=== PATIENT | female | born 1995 | race Caucasian/White ===

== ENCOUNTER 2023-03-01 21:38 | Observation (INO) | payer MEDICAID ==
[~2023-03-01] VITALS: Ht 152.4 cm; Wt 78.0 kg
== END 2023-03-01 23:12 | disposition home or self-care (01) ==
LOC: LDRP 21:38
PROVIDERS: ADMIT Obstetrics & Gynecology; ATTEND Obstetrics & Gynecology
DX: O36.8120 Decreased fetal movements, second trimester, not applicable or unspecified (principal); Z3A.24 24 weeks gestation of pregnancy
CPT/HCPCS: 59025; 76815; 81002; 94760; G0378

== ENCOUNTER 2023-04-30 11:13 | Observation (INO) | payer MEDICAID | END 2023-04-30 13:09 | disposition home or self-care (01) | LOC: LDRP 11:13 | PROVIDERS: ADMIT Obstetrics & Gynecology; ATTEND Obstetrics & Gynecology | DX: O24.419 Gestational diabetes mellitus in pregnancy, unspecified control (principal); Z3A.32 32 weeks gestation of pregnancy | CPT/HCPCS: 59025; 76818; 81002; 82948; 94760; G0378 ==

== ENCOUNTER 2023-05-05 08:11 | Observation (INO) | payer MEDICAID ==
[2023-05-07] MEDS ORDERED: CEPH250C PO (08:48)
[2023-05-07] MEDS ORDERED: PREN-96 PO (08:48)
[2023-05-07 09:06] LABS: Urine Bacteria NONE SEEN /hpf (None Seen); Urine Blood Negative /uL (Negative); Urine Budding Yeast FEW /hpf (None Seen); Urine Clarity CLOUDY (Clear); Urine Color Yellow (Yellow); Urine Mucus FEW (None Seen); Urine Protein, UAD 1+ (Negative); Urine Urobilinogen Normal (Negative); Urine WBC 91 /hpf (0 - 5); Urine WBC Clumps PRESENT /hpf (None Seen); Urine pH 6.5 (5.0-8.0)
== END 2023-05-07 09:23 | disposition home or self-care (01) ==
LOC: LDRP 05-07 08:07 → UNDOADMOB 05-07 08:07 → LDRP 05-07 08:10 → UNDODISOB 05-07 09:23
PROVIDERS: ADMIT Obstetrics & Gynecology; ATTEND Obstetrics & Gynecology
DX: O24.419 Gestational diabetes mellitus in pregnancy, unspecified control (principal); O23.43 Unspecified infection of urinary tract in pregnancy, third trimester; Z3A.33 33 weeks gestation of pregnancy
CPT/HCPCS: 59025; 76818; 81001; 81002; 82948; 94760; G0378

== ENCOUNTER 2023-06-03 12:53 | Observation (INO) | payer MEDICAID | END 2023-06-03 14:38 | disposition home or self-care (01) | LOC: LDRP 12:53 → UNDOADMOB 12:53 → LDRP 13:24 | PROVIDERS: ADMIT Obstetrics & Gynecology; ATTEND Obstetrics & Gynecology | DX: O24.419 Gestational diabetes mellitus in pregnancy, unspecified control (principal); Z3A.37 37 weeks gestation of pregnancy | CPT/HCPCS: 59025; 76818; 81002; 82948; 82962; 94760; G0378 ==

== ENCOUNTER → 2023-06-03 | Outpatient (CLI) | payer MEDICAID ==
[~2023-06-03] MED LIST: CEPH250C PO; PREN-96 PO
[2023-06-03 12:01] LABS: Basophils # (auto) 0 10 ^3/uL (0-0.2); Basophils % (auto) 0.5 % (0.0-2.0); Eosinophils # (auto) 0.2 10 ^3/uL (0-0.8); Eosinophils % (auto) 2.2 % (0.0-7.0); Hematocrit 33.6 % (36.0-46.0); Hemoglobin 11.4 g/dL (12.2-16.2); Lymphocytes # (auto) 1.6 10 ^3/uL (0.4-5.4); Lymphocytes % (auto) 18.3 % (10.0-50.0); Monocytes # (auto) 0.6 10 ^3/uL (0-1.3); Monocytes % (auto) 6.5 % (0.0-12.0); Neutrophils # (auto) 6.3 10 ^3/uL (1.6-8.6); Neutrophils % (auto) 72.5 % (37.0-80.0); Nucleated Red Blood Cells % 0.1 %; Red Blood Cells 3.57 10^6/uL (4.0-5.20); Red Cell Distribution Width 14.3 % (11.8-14.3); White Blood Cell 8.7 10^3/uL (4.4-10.8)
[2023-06-04 06:06] LABS: RPR Non Reactive (Non Reactive)
[2023-06-05 00:06] LABS: Chlamydia Trachomatis, NAA Negative (Negative); Neisseria gonorrhoeae, NAA Negative (Negative)
== END | disposition home or self-care (01) ==
LOC: LAB 11:46
PROVIDERS: ATTEND Obstetrics & Gynecology
DX: Z34.80 Encounter for supervision of other normal pregnancy, unspecified trimester (principal); Z3A.00 Weeks of gestation of pregnancy not specified
CPT/HCPCS: 36415; 83036; 85025; 86592

== ENCOUNTER 2023-06-10 14:21 | Observation (INO) | payer MEDICAID | END 2023-06-11 13:17 | disposition home or self-care (01) | LOC: UNDOADMOB 06-11 11:04 → LDRP 06-11 11:04 → UNDODISOB 06-11 13:17 | PROVIDERS: ADMIT Obstetrics & Gynecology; ATTEND Obstetrics & Gynecology | DX: O24.419 Gestational diabetes mellitus in pregnancy, unspecified control (principal); Z3A.38 38 weeks gestation of pregnancy | CPT/HCPCS: 59025; 76818; 81002; 82948; 82962; G0378 ==

== ENCOUNTER 2023-06-14 07:00 | Inpatient (IN) | payer MEDICAID ==
[~2023-06-14] VITALS: Ht 152.4 cm; Wt 83.5 kg
[2023-06-14] MEDS ORDERED: LIDOCAINE 2%HCL (LOCAL ANESTH.) INJ 20ML MDV IJ PRN (07:15)
[2023-06-14] MEDS ORDERED: BUTORPHANOL TARTRATE 2 MG/1 ML VIAL IV PRN ×2 (07:15)
[2023-06-14 08:02] LABS: Basophils # (auto) 0 10 ^3/uL (0-0.2); Basophils % (auto) 0.5 % (0.0-2.0); Eosinophils # (auto) 0.3 10 ^3/uL (0-0.8); Eosinophils % (auto) 3.4 % (0.0-7.0); Hematocrit 32.8 % (36.0-46.0); Hemoglobin 11.1 g/dL (12.2-16.2); Lymphocytes # (auto) 1.7 10 ^3/uL (0.4-5.4); Lymphocytes % (auto) 21.2 % (10.0-50.0); Mean Corpuscular Hemoglobin 31.7 pg (28.0-32.0); Mean Corpuscular Hgb Conc. 33.9 g/dL (32.0-36.0); Mean Corpuscular Volume 93.4 fL (80.0-100.0); Monocytes # (auto) 0.6 10 ^3/uL (0-1.3); Monocytes % (auto) 6.8 % (0.0-12.0); Neutrophils # (auto) 5.5 10 ^3/uL (1.6-8.6); Neutrophils % (auto) 68.1 % (37.0-80.0); Red Blood Cells 3.51 10^6/uL (4.0-5.20); Red Cell Distribution Width 14.4 % (11.8-14.3); White Blood Cell 8.1 10^3/uL (4.4-10.8)
[2023-06-14 08:07] LABS: Urine Bacteria FEW /hpf (None Seen); Urine Blood Negative /uL (Negative); Urine Clarity HAZY (Clear); Urine Protein, UAD TRACE (Negative); Urine Specific Gravity 1.012 (1.001-1.035); Urine Urobilinogen Normal (Negative); Urine WBC 21 /hpf (0 - 5)
[2023-06-14 08:08] LABS: Urine Color Yellow (Yellow)
[2023-06-14 08:18] LABS: INR 0.91 (0.9-1.15); Partial Thromboplastin Time 25.6 SEC (24.5-34.5); Prothrombin Time 9.6 sec (9.3-11.8)
[2023-06-14 08:18] LABS: Amphetamine Screen, Urine Neg (NEGATIVE); Barbiturate Scree,Urine Neg (NEGATIVE); Cocaine Screen, Urine Neg (NEGATIVE); Opiate Scree,Urine Neg (NEGATIVE); Phencyclidine Screen, Urine Neg (NEGATIVE)
[2023-06-14 08:19] LABS: Benzodiazephine Screen, Urine Neg (NEGATIVE); Cannabinoid Screen, Urine Neg (NEGATIVE)
[2023-06-14 08:21] LABS: Alkaline Phosphatase 114 U/L (46-116); Anion Gap 9 (5-15); Aspartate Aminotransferase 9 U/L (13-40); Calcium 9.1 mg/dL (8.5-10.1); Carbon Dioxide 22 mmol/L (20-30); Chloride 109 mmol/L (98-107); Glucose 103 mg/dL (74-106); Potassium 3.5 mmol/L (3.5-5.1); Sodium 140 mmol/L (136-145)
[2023-06-14 08:22] LABS: Albumin 3.8 g/dL (3.2-4.8); Bilirubin, Total 0.6 mg/dL (0.2-1.0); Total Protein 6.3 g/dL (5.7-8.2)
[2023-06-14 08:27] LABS: Alanine Aminotransferase < 9 U/L (7-40); BUN/Creatinine Ratio 10.2 (10.0-20.0); Blood Urea Nitrogen < 5 mg/dL (9-23)
[2023-06-14] MEDS: PHISODERM TOP SOLN 240ML BTL TOP PRN (09:33)
[2023-06-14] MEDS: DERMOPLAST 60ML BOTTLE TOP PRN (09:34)
[2023-06-14] MEDS: miSOPROStol 50 MCG per PRE-CUT 1/2 TAB PO PRN (09:34)
[2023-06-14] MEDS: WITCH HAZEL-GLYCERIN PAD TOP PRN (09:34)
[2023-06-14] MEDS: PENICILLIN G POT 5MIL/D5 50ML 50 ML IV ONE (09:34)
[2023-06-14] MEDS ORDERED: ACCU-CHEK COMFORT CURVE STRIP VI SCH (10:00)
[2023-06-14] MEDS ORDERED: PENICILLIN G POTASSIUM 2,500,000 UNITS in D5W 5% 50 ML IV SCH (11:15)
[2023-06-14] MEDS: ACCU-CHEK COMFORT CURVE STRIP VI SCH (12:00)
[2023-06-14] MEDS: PENICILLIN G POTASSIUM 2,500,000 UNITS in D5W 5% 50 ML IV SCH (14:14)
[2023-06-14] MEDS ORDERED: TERBUTALINE SULFATE 1 MG/ML 1ML VIAL SC PRN (14:15)
[2023-06-14] MEDS: LACT. RINGERS/OXYTOCIN 20UNITS 500 ML IV ONE ×2 (14:15→14:45)
[2023-06-14] MEDS: LACTATED RINGER'S 1,000 ML IV SCH (14:15)
[2023-06-14] MEDS: ePHEDrine SULFATE 50 MG/ML AMP IV ONE (14:30)
[2023-06-14] MEDS ORDERED: NALOXONE HCL 0.4 MG/ML VIAL IV ONE (14:30)
[2023-06-14] MEDS: ROPIVACAINE HCL 200 ML ONE (16:02)
[2023-06-14] MEDS: LACT. RINGERS/OXYTOCIN 20UNITS 1,000 ML IV SCH (16:44)
[2023-06-14] MEDS: D5W/LACTATED RINGERS 1,000 ML IV SCH (17:59)
[2023-06-14] MEDS ORDERED: DexAMETHasone SOD PHOS 10MG/1ML VIAL INJ ONE (23:49)
[2023-06-14] MEDS ORDERED: ONDANSETRON HCL 4 MG/2 ML VIAL ONE (23:49)
[2023-06-14] MEDS ORDERED: LIDOCAINE 2% (LOCAL ANESTH.) PF 5ml SDV ONE ×2 (23:50→23:51)
[2023-06-14] MEDS ORDERED: oxyTOCIN 10 UNIT/ML 10ML VIAL ONE (23:50)
[2023-06-14] MEDS ORDERED: EPINEPHrine HCL 1 MG/1 ML AMP ONE (23:50)
[2023-06-14] MEDS ORDERED: MORPHINE SULF PF 5 MG/10 ML VIAL ONE (23:53)
[2023-06-14] MEDS ORDERED: fentaNYL CITRATE 100 MCG/2 ML VL ONE (23:53)
[2023-06-15] VITALS (12 sets, daily range): BP systolic 104–118; BP diastolic 51–72; PULSE 68–88; RESP 16–18; TEMP 98.2–98.8; O2SAT 95–100
[2023-06-15] MEDS ORDERED: HYDR-4902 PO (00:03)
[2023-06-15] MEDS ORDERED: DOCU-94 PO (00:03)
[2023-06-15] MEDS ORDERED: IBUP-1456 PO (00:03)
[2023-06-15] MEDS ORDERED: SODIUM BICARB 8.4% 50Meq/50ml SYR Vial IV ONE (00:14)
[2023-06-15] MEDS: LACT. RINGERS/OXYTOCIN 20UNITS 1,000 ML IV ONE (00:15)
[2023-06-15] MEDS: GUM (CHEWING) 1 GUM CHEW CHEW ONE (00:15)
[2023-06-15] MEDS ORDERED: ONDANSETRON HCL 4 MG/2 ML VIAL IV PRN (00:15)
[2023-06-15] MEDS ORDERED: SODIUM CHLORIDE LOCK 10 ML ONE ×2 (00:28→00:43)
[2023-06-15] MEDS ORDERED: ceFAZolin 1GM VL ONE (00:28)
[2023-06-15] MEDS ORDERED: PHENYLEPHRINE HCL 10 MG/ML VL ONE (00:43)
[2023-06-15] MEDS: CARBOPROST TROMETHAMINE 250 MCG/1ML VIAL IM ONE (00:46)
[2023-06-15] MEDS ORDERED: HYDROmorphone HCL 2 MG/ML VL/or syr IV PRN (01:45)
[2023-06-15] MEDS ORDERED: NALOXONE HCL 0.4 MG/ML VIAL IV PRN (01:45)
[2023-06-15] MEDS ORDERED: NALBUPHINE HCL 10 MG/1ml INJECTION IV ONE (01:45)
[2023-06-15] MEDS: diphenhdrAMINE HCL 50 MG/1 ML VL IV PRN (05:56)
[2023-06-15] MEDS: ceFAZolin 1GM/50ML 50 ML IV SCH ×2 (05:57→14:14)
[2023-06-15] MEDS ORDERED: ceFAZolin 1GM/50ML 50 ML IV SCH (07:00)
[2023-06-15 10:55] LABS: Basophils # (auto) 0 10 ^3/uL (0-0.2); Basophils % (auto) 0.1 % (0.0-2.0); Eosinophils # (auto) 0 10 ^3/uL (0-0.8); Hematocrit 34.3 % (36.0-46.0); Lymphocytes # (auto) 1.3 10 ^3/uL (0.4-5.4); Lymphocytes % (auto) 8.2 % (10.0-50.0); Mean Corpuscular Hemoglobin 30.9 pg (28.0-32.0); Mean Corpuscular Hgb Conc. 32.2 g/dL (32.0-36.0); Mean Corpuscular Volume 95.8 fL (80.0-100.0); Monocytes # (auto) 0.8 10 ^3/uL (0-1.3); Monocytes % (auto) 5.1 % (0.0-12.0); Neutrophils % (auto) 86.6 % (37.0-80.0); Red Blood Cells 3.58 10^6/uL (4.0-5.20); Red Cell Distribution Width 14.4 % (11.8-14.3); White Blood Cell 16.2 10^3/uL (4.4-10.8)
[2023-06-15] MEDS: ONDANSETRON HCL 4 MG/2 ML VIAL IV PRN (11:47)
[2023-06-15] MEDS: ACETAMINOPHEN IV 1000 MG/100ML (10MG/ML) IV PRN (11:47)
[2023-06-15] MEDS ORDERED: BISACODYL 10 MG RECT SUPP PR PRN (23:30)
[2023-06-16 03:00] VITALS: BP 104/56; PULSE 68; RESP 16; TEMP 98.2; O2SAT 95
[2023-06-16] MEDS: SIMETHICONE 80 MG CHEWABLE TABLET PO SCH (05:48)
[2023-06-16 06:43] LABS: Basophils # (auto) 0.1 10 ^3/uL (0-0.2); Basophils % (auto) 0.6 % (0.0-2.0); Eosinophils # (auto) 0.1 10 ^3/uL (0-0.8); Eosinophils % (auto) 1.1 % (0.0-7.0); Hematocrit 29.4 % (36.0-46.0); Hemoglobin 9.8 g/dL (12.2-16.2); Lymphocytes # (auto) 2.1 10 ^3/uL (0.4-5.4); Lymphocytes % (auto) 22.2 % (10.0-50.0); Mean Corpuscular Hemoglobin 31.4 pg (28.0-32.0); Mean Corpuscular Hgb Conc. 33.3 g/dL (32.0-36.0); Mean Corpuscular Volume 94.2 fL (80.0-100.0); Monocytes # (auto) 0.7 10 ^3/uL (0-1.3); Monocytes % (auto) 7.8 % (0.0-12.0); Neutrophils # (auto) 6.3 10 ^3/uL (1.6-8.6); Neutrophils % (auto) 68.3 % (37.0-80.0); Red Blood Cells 3.12 10^6/uL (4.0-5.20); Red Cell Distribution Width 14.5 % (11.8-14.3); White Blood Cell 9.3 10^3/uL (4.4-10.8)
[2023-06-16 07:00] VITALS: BP 102/62; PULSE 76; RESP 18; TEMP 98.4; O2SAT 100
[2023-06-16] MEDS: HYDROcodone-ACET 5/325MG TAB PO PRN (07:48)
[2023-06-16] MEDS: DOCUSATE CALCIUM 240 MG CAP PO SCH (10:01)
[2023-06-16] MEDS: DOCUSATE SOD 100 MG CAP PO SCH (10:01)
[2023-06-16] MEDS: FERROUS SULFATE 325mg EC TAB PO SCH (10:01)
[2023-06-16 11:00] VITALS: BP 111/64; PULSE 85; RESP 15; TEMP 98.9; O2SAT 97
[2023-06-16 15:00] VITALS: BP 110/79; PULSE 92; RESP 15; TEMP 98.1; O2SAT 96
[2023-06-16] MEDS ORDERED: HYDROcodone-ACET 5/325MG TAB PO PRN (18:00)
[2023-06-16 18:53] VITALS: BP 127/69; PULSE 84; RESP 16; TEMP 98.3; O2SAT 99
[2023-06-16 23:05] VITALS: BP 122/70; PULSE 80; RESP 17; TEMP 98.4; O2SAT 100
[2023-06-17] MEDS: IBUPROFEN 800 MG TAB PO PRN (01:03)
[2023-06-17 02:31] VITALS: BP 105/50; PULSE 73; RESP 18; TEMP 98.3; O2SAT 96
[2023-06-17 06:50] VITALS: BP 111/66; PULSE 73; RESP 20; TEMP 98; O2SAT 100
[2023-06-17 07:17] LABS: RPR Non Reactive (Non Reactive)
[2023-06-17 11:25] VITALS: BP 128/68; PULSE 82; RESP 20; TEMP 98.5; O2SAT 99
[2023-06-17 18:06] LABS: Treponema pallidum Ab (FTA-Ab) Non Reactive (Non Reactive)
== END 2023-06-17 12:17 | disposition home or self-care (01) | DRG 540 ==
LOC: LDRP 07:00
PROVIDERS: ADMIT Obstetrics & Gynecology; ATTEND Obstetrics & Gynecology
PROC: 10D00Z1 Extraction of Products of Conception, Low, Open Approach (ICD-10-PCS; principal; 2023-06-15 00:26)
DX: O24.420 Gestational diabetes mellitus in childbirth, diet controlled (principal); O23.43 Unspecified infection of urinary tract in pregnancy, third trimester; R71.0 Precipitous drop in hematocrit; O76 Abnormality in fetal heart rate and rhythm complicating labor and delivery; Z37.0 Single live birth; Z3A.39 39 weeks gestation of pregnancy; Z91.148 Patient's other noncompliance with medication regimen for other reason; Z91.198 Patient's noncompliance with other medical treatment and regimen for other reason; N39.0 Urinary tract infection, site not specified
CPT/HCPCS: 36415; 59025; 62282; 80053; 80307; 81001; 82948; 82962; 85025; 85610; 85730; 86592; 86703; 86803; 86850; 86900; 86901; 87340; 94760; 94762; 96360; 96361; 96365; 96366; G0378; J0131; J0171; J0690; J1100; J2001; J2405; J2540; J2590; J7060